=== PATIENT | female | born 1950 | race Caucasian/White ===

== ENCOUNTER 2016-07-30 11:51 | Day surgery (SDC) | payer MEDICARE, OTHER ==
[2016-07-26 15:05] VITALS: BMI 34.0
[~2016-07-30 11:51] MED LIST: LACTATED RINGERS 1,000 ML IV SCH; Pre Op ABX Message 1 EACH MISC MISCELLANE ONE
[2016-07-30 12:12] VITALS: RESP 16; TEMP 98.2
[2016-07-30] MEDS ORDERED: LIDOCAINE 1% 20 ML VIAL (10MG/ML) FOR IV START INTRADERMA ONE (12:28)
[2016-07-30] MEDS ORDERED: DEXAMETHASONE SOD PHOS (MDV) 100 MG/10 ML VIAL IV ONE (12:32)
[2016-07-30] MEDS ORDERED: ONDANSETRON 4 MG/2 ML VIAL IVP ONE (12:32)
[2016-07-30 12:45] LABS: Glucose,Whole Blood 107 mg/dL (75-99)
[2016-07-30] MEDS ORDERED: MIDAZOLAM 2 MG/2 ML VIAL ONE (14:00)
[2016-07-30] MEDS ORDERED: PROPOFOL 10 MG/ML 20 ML VIAL IV ONE (14:00)
[2016-07-30] MEDS ORDERED: fentaNYL (PF) 50 MCG/ML 2 ML AMP ONE (14:00)
[2016-07-30] MEDS ORDERED: BUPIVACAINE (PF) 0.5% 30 ML VIAL SQ ONE (14:12)
[2016-07-30] MEDS ORDERED: LIDOCAINE 2% INJ 20 MG/ML SQ ONE (14:12)
[2016-07-30 14:58] VITALS: BP 129/82; PULSE 75
[2016-07-30 15:07] LABS: Glucose,Whole Blood 128 mg/dL (75-99)
--- NOTE | 2016-08-15 09:37 | OP ---
DATE OF SERVICE: 07/30/2016 SURGEON: MARILYN HERRING DO PIPELINES LABORER: PREOPERATIVE DIAGNOSIS: Right carpal tunnel syndrome. POSTOPERATIVE DIAGNOSIS: Right carpal tunnel syndrome. OPERATION: Right carpal tunnel release. ANESTHESIA: ESTIMATED BLOOD LOSS: SPECIMENS REMOVED: COMPLICATIONS: OPERATIVE FINDINGS: DESCRIPTION OF PROCEDURE: The patient was taken to the operative suite where a sedation was administered by the Department of Anesthesia. I then performed a local injection along the line of the incision with a combination of Marcaine and Xylocaine both without epinephrine. The hand was then prepped and draped in the usual manner. The arm was elevated, exsanguinated and the cuff was inflated to 250 mmHg. A longitudinal incision was made along the ring finger ray distal to the wrist crease. Dissection was taken through the skin and subcutaneous tissue, initially sharp through the skin and then blunt through the subcutaneous tissue to ensure protection of any potential terminal transverse branches of the palmar cutaneous nerve. The palmar fascia was then incised under direct vision longitudinally exposing the transverse carpal ligament. The transverse carpal ligament also was incised under direct vision. The dissection was then continued proximally beneath the skin under direct vision to release the distal forearm fascia. The median nerve was then reflected free of tenosynovium to ensure no adhesions. The tourniquet was then released. The wound was then irrigated and the skin was closed with a running 5-0 nylon suture. A soft bulky dressing was applied including a volar plaster splint holding the wrist in a neutral slightly extended position. The patient was then taken to the recovery room in satisfactory condition.
== END 2016-07-30 15:16 | disposition home or self-care (01) ==
LOC: OR 11:51
PROVIDERS: ATTEND Orthopaedic Surgery Hand Surgery
DX: G56.01 Carpal tunnel syndrome, right upper limb (principal); M19.031 Primary osteoarthritis, right wrist; I10 Essential (primary) hypertension; Z87.891 Personal history of nicotine dependence; E11.9 Type 2 diabetes mellitus without complications; Z79.4 Long term (current) use of insulin; Z79.84 Long term (current) use of oral hypoglycemic drugs; G62.9 Polyneuropathy, unspecified; E78.5 Hyperlipidemia, unspecified; K21.9 Gastro-esophageal reflux disease without esophagitis; Z79.82 Long term (current) use of aspirin; Z79.899 Other long term (current) drug therapy
CPT/HCPCS: 64721; J2001; J2250; J2405; J3010; J1100; J2704

== ENCOUNTER → 2017-01-08 | Outpatient (CLI) | payer MEDICARE, OTHER ==
--- NOTE | 2017-01-08 14:17 | US ---
EXAMINATION TYPE: US kidneys/renal and bladder DATE OF EXAM: 01/08/2017 COMPARISON: NONE CLINICAL HISTORY: Abnormal Kidney Functions R94.4. Abnormal kidney function, diabetes EXAM MEASUREMENTS: Right Kidney: 13.1 x 4.5 x 6.3 cm Left Kidney: 11.8 x 5.5 x 4.9 cm Right Kidney: enlarged with a hypoechoic area mid = 0.8 x 0.7 x 1.0cm Left Kidney: Hypoechoic area lower = 1.0 x 0.8 x 1.1cm Bladder: appears wnl Bilateral Jets seen: yes No hydronephrosis or nephrolithiasis. Bladder distends normally. IMPRESSION: Small hypoechoic areas involving both kidneys are too small to characterize
== END | disposition home or self-care (01) ==
LOC: RADUSWWP 12:22
PROVIDERS: ATTEND Family Medicine
DX: R93.421 Abnormal radiologic findings on diagnostic imaging of right kidney (principal); R93.422 Abnormal radiologic findings on diagnostic imaging of left kidney; R94.4 Abnormal results of kidney function studies
CPT/HCPCS: 76770

== ENCOUNTER → 2018-03-13 | Outpatient (CLI) | payer MEDICARE, OTHER ==
--- NOTE | 2018-03-13 18:45 | US ---
EXAMINATION TYPE: US kidneys/renal and bladder DATE OF EXAM: 03/13/2018 COMPARISON: 01/08/2017 CLINICAL HISTORY: 67-year-old female KIDNEY LESION N28.9. H/O renal lesions TECHNIQUE: Multiple sonographic images of the kidneys and bladder are obtained. FINDINGS: EXAM MEASUREMENTS: Right Kidney: 11.9 x 5.7 x 5.5 cm Left Kidney: 11.9 x 6.2 x 5.0 cm No hydronephrosis on either side. Right Kidney: Cystic lesion as seen on previous laterally= 0.8 x 0.8 x 0.7 cm (10 x 8 x 7 mm, previo usly) Left Kidney: HypoHypoechoic lesion lower pole= 1.0 x 0.9 x 1.2 cmersus 10 x 8 x 11 mm, previously) Bladder: wnl wnlilateral Jets seen: Yes PRESSION: 1. A benign 8 mm cyst in the right kidney is slightly smaller from prior. 2. A 12 mm hypoechoic lesion in the left lower pole is relatively stable for over a year and suggests a cyst. Internal echoes could be artifactual or could represent debris. 3. No hydronephrosis.
== END ==
LOC: RADUSWWP 12:50
PROVIDERS: ATTEND Family Medicine
DX: N28.9 Disorder of kidney and ureter, unspecified (principal); N28.1 Cyst of kidney, acquired
CPT/HCPCS: 76770

== ENCOUNTER → 2019-01-19 | Outpatient (CLI) | payer MEDICARE, OTHER ==
--- NOTE | 2019-01-19 13:08 | XR ---
EXAMINATION TYPE: XR Hip Complete LT DATE OF EXAM: 01/19/2019 COMPARISON: NONE HISTORY: Pain TECHNIQUE: 2 views submitted FINDINGS: There is no evidence of erosive change or acute fracture. Hypertrophic change of the acetabulum. Mild concentric narrowing the joint space. No erosive changes. IMPRESSION: 1. Arthropathy correlate for femoral acetabular impingement.
--- NOTE | 2019-01-19 13:12 | XR ---
EXAM TYPE: LUMBAR SPINE X RAY SERIES COMPARISON: NONE HISTORY: Pain TECHNIQUE: 4 views are submitted. FINDINGS: Alignment is anatomic. The pedicles are intact. The transverse processes are intact. There is reanna re degenerative disc disease with vacuum disc L5-S1. Severe facet arthropathy L3-S1. Grade 1 anteroli sthesis L4 on L5. Degenerative disc disease thoracolumbar spine. Vascular calcifications noted. Could not exclude a infrarenal abdominal aortic aneurysm measuring 3 IMPRESSION: 1. Multilevel severe facet arthropathy with degenerative disc disease most marked at L5-S1. There is a rate 1 anterolisthesis L4 on L5. 2. Correlate with the ultrasound to assess for borderline 3 cm abdominal aortic aneurysm
== END ==
LOC: RADXRMAIN 12:40
PROVIDERS: ATTEND Family Medicine
DX: M51.37 Other intervertebral disc degeneration, lumbosacral region (principal); M43.16 Spondylolisthesis, lumbar region; M46.97 Unspecified inflammatory spondylopathy, lumbosacral region; M12.9 Arthropathy, unspecified
CPT/HCPCS: 72110; 73502

== ENCOUNTER → 2019-02-13 | Outpatient (CLI) | payer MEDICARE, OTHER ==
--- NOTE | 2019-02-14 09:34 | US ---
EXAMINATION TYPE: US duplex aorta DATE OF EXAM: 02/13/2019 COMPARISON: CLINICAL HISTORY: Z13.6; R93.7. Possible AAA, nonsmoker, HTN, xray showed possible AAA EXAM MEASUREMENTS: Abdominal Aorta: Proximal: 2.4 x 2.7 cm Mid: 2.0 x 2.0 cm Distal: 1.7 x 2.1 cm Bifurcation: Right- 0.8 x 0.9 cm Left- 0.8 x 1.0 cm No AAA visualized IMPRESSION: No evidence for abdominal aortic aneurysm.
== END | disposition home or self-care (01) ==
LOC: RADUSWWP 15:27
PROVIDERS: ATTEND Family Medicine
DX: Z13.6 Encounter for screening for cardiovascular disorders (principal); R93.7 Abnormal findings on diagnostic imaging of other parts of musculoskeletal system
CPT/HCPCS: 93979

== ENCOUNTER → 2019-06-03 | Outpatient (CLI) | payer MEDICARE, OTHER ==
--- NOTE | 2019-06-03 10:00 | US ---
EXAMINATION TYPE: US abdomen complete DATE OF EXAM: 06/03/2019 COMPARISON: Previous Aorta and Renal US CLINICAL HISTORY: N28.1 cyst of kidney D25.9 Leiomyoma of uterus, u. F/U renal cysts EXAM MEASUREMENTS: Liver Length: 16.5 cm Gallbladder Wall: 0.2 cm CBD: 0.5 cm Spleen: 6.2 cm Right Kidney: 12.0 x 4.7 x 5.0 cm Left Kidney: 11.0 x 6.2 x 5.2 cm Pancreas: 3mm duct visualized, tail obscured by overlying bowel gas Liver: Difficult to penetrate, heterogeneous, possible fatty sparing near GB, possible cyst anterior right lobe= 1.1 cm Gallbladder: Distended Evidence for sonographic Carlos's sign: No CBD: wnl Spleen: Calcifications scattered within spleen Right Kidney: Cyst lateral= 1.1 x 1.0 x 0.6 cm, unchanged from previous Left Kidney: Cyst lower pole= 1.2 x 1.1 x 1.0 cm, unchanged from previous, possible 5mm calcificatio n mid Upper IVC: wnl Abd Aorta: Ectatic with upper limit measurement at distal aspect= 2.8 x 2.6 cm IMPRESSION: 1. Fatty liver. 2. Gallbladder distention. 3. Renal cystic changes.
--- NOTE | 2019-06-03 10:09 | US ---
EXAMINATION TYPE: US pelvic complete DATE OF EXAM: 06/03/2019 COMPARISON: NONE CLINICAL HISTORY: N28.1 cyst of kidney D25.9 Leiomyoma of uterus, u. Pt states known fibroids within uterus, F/U, no previous study here TECHNIQUE: Transabdominal (TA). Transabdominal sonographic images of the pelvis were acquired. Date of LMP: Pt states age [age] EXAM MEASUREMENTS: Uterus: 9.2 x 3.2 x 4.4 cm Endometrial Stripe: 0.4 cm Right Ovary: 3.8 x 3.4 x 3.3 cm Left Ovary: 1.8 x 1.7 x 1.2 cm 1. Uterus: Anteverted Heterogeneous with two possible fibroids 1)= lower uterine segment= 1.4 x 1. 2 x 1.6 cm, 2)= posterior fundus== 2.1 x 2.2 x 2.1 cm 2. Endometrium: Appeared wnl 3. Right Ovary: Enlarged, possible solid lesion= 2.5 x 2.0 x 2.4 cm/ Far out in right adnexa 4. Left Ovary: Appeared wnl 5. Bilateral Adnexa: wnl 6. Posterior cul-de-sac: wnl IMPRESSION: 1 solid appearing mass of right ovary. CT is recommended further evaluation. 2. Leiomyomatous change.
== END | disposition home or self-care (01) ==
LOC: RADUSWWP 08:10
PROVIDERS: ATTEND Family Medicine
DX: D25.9 Leiomyoma of uterus, unspecified (principal); K76.0 Fatty (change of) liver, not elsewhere classified; K82.8 Other specified diseases of gallbladder; N28.1 Cyst of kidney, acquired
CPT/HCPCS: 76700; 76856

== ENCOUNTER 2020-01-29 08:17 | Emergency (ER) | payer MEDICARE ==
[2020-01-29 08:21] VITALS: BP 157/94; PULSE 103; RESP 18; TEMP 99.1
[2020-01-29] MEDS ORDERED: AMOXIC-POT CLAV 875-125MG 1 EACH TAB PO STA (08:34)
[2020-01-29] MEDS ORDERED: AMOXIC-POT CLAV 875MG STARTER PACK 2 TAB BTL PO STA (08:34)
--- NOTE | 2020-01-29 08:45 | ED ---
General Adult HPI - General Chief complaint: Dental/Oral Stated complaint: Abscess/Dental Pain Time Seen by Provider: 01/29/20 08:20 Source: patient, RN notes reviewed, old records reviewed Mode of arrival: ambulatory Limitations: no limitations - History of Present Illness Initial comments: This is a 69-year-old female presents emergency Department complaining of abscessed tooth at tooth #17 on the left lower jaw. Patient states she started amoxicillin on Saturday afternoon which she states is not getting any better. Patient states she does not want to have the abscess drained because she's too afraid. Patient's wondering if there is a better antibiotic. Patient denies any fever chills. Patient states the swelling is getting a little bit worse. - Related Data Home Medications Medication Instructions Recorded Confirmed Ascorbic Acid [Vitamin C] 500 mg PO DAILY PRN 02/14/16 07/26/16 Cinnamon Bark [Cinnamon] 1,000 mg PO DAILY PRN 02/14/16 07/26/16 Insulin Glargine [Lantus] 34 unit SQ DAILY 02/14/16 07/26/16 Losartan [Cozaar] 50 mg PO DAILY 02/14/16 07/26/16 Magnesium 250 mg PO DAILY PRN 02/14/16 07/26/16 Omeprazole 20 mg PO DAILY 02/14/16 07/26/16 Potassium Chloride [Klor-Con 10] 10 meq PO DAILY 02/14/16 07/26/16 Pravastatin Sodium [Pravachol] 20 mg PO QAM 02/14/16 07/26/16 Pregabalin [Lyrica] 150 mg PO BID 02/14/16 07/26/16 Vitamin E 400 unit PO DAILY 02/14/16 07/26/16 amLODIPine [Norvasc] 10 mg PO DAILY 02/14/16 07/26/16 atenoloL [Atenolol] 100 mg PO DAILY 02/14/16 07/26/16 glipiZIDE [Glucotrol] 10 mg PO DAILY 02/14/16 07/26/16 hydroCHLOROthiazide [Hydrodiuril] 50 mg PO DAILY 02/14/16 07/26/16 metFORMIN HCL [Glucophage] 850 mg PO BID 02/14/16 07/26/16 Aspirin [Adult Low Dose Aspirin EC] 81 mg PO DAILY 07/26/16 07/26/16 Cholecalciferol [Vitamin D3] 2,000 unit PO DAILY 07/26/16 07/26/16 Liraglutide [Victoza 2-Arsalan] 1.8 mg INJ DAILY 07/26/16 07/26/16 Pioglitazone [Actos] 30 mg PO DAILY 07/26/16 07/26/16 Previous Rx's Medication Instructions Recorded Amoxicillin/Potassium Clav 1 each PO Q12HR #28 tab 01/29/20 [Augmentin 875-125 Tablet] Ibuprofen [Motrin] 600 mg PO Q6HR PRN #20 tab 01/29/20 Allergies Allergy/AdvReac Type Severity Reaction Status Date / Time No Known Allergies Allergy Verified 01/29/20 08:19 Review of Systems ROS Statement: Those systems with pertinent positive or pertinent negative responses have been documented in the HPI. ROS Other: All systems not noted in ROS Statement are negative. Past Medical History Past Medical History: Diabetes Mellitus, GERD/Reflux, Hyperlipidemia, Hypertension Additional Past Medical History / Comment(s): Carpal Tunnel to R hand, neuropathy. History of Any Multi-Drug Resistant Organisms: None Reported Past Surgical History: Section, Orthopedic Surgery Additional Past Surgical History / Comment(s): Hx surgery to left ankle with screws, hemorrhoidectomy, D&C, colonoscopy. Past Anesthesia/Blood Transfusion Reactions: Previous Problems w/ Anesthesia Additional Past Anesthesia/Blood Transfusion Reaction / Comment(s): had hard time waking up after one surgery Past Psychological History: No Psychological Hx Reported Smoking Status: Never smoker Past Alcohol Use History: Rare Past Drug Use History: None Reported - Past Family History Mother History Unknown: Yes Family Medical History: No Reported History General Exam - General Exam Comments Initial Comments: GENERAL Patient is well-developed and well-nourished. Patient is in mild distress. EYES Patient's pupils are equal and round. Extraocular motion is intact MOUTH Patient has a little fluctuance next to the 17th tooth. SKIN Unremarkable NEURO The patient is alert and oriented 3 PYSCH Patient has normal interpersonal interactions. MUSCULOSKELETAL All 4 extremities and full range of motion Limitations: no limitations Course Vital Signs 01/29/20 08:19 Temperature 99.1 F Pulse Rate 103 H Respiratory 18 Rate Blood Pressure 157/94 O2 Sat by Pulse 99 Oximetry Medical Decision Making - Medical Decision Making I spoke with the patient about draining the abscess she actually refused. I tried to convince her 3 times and she refused so at this point time are going to change antibiotics from amoxicillin to Augmentin. Disposition Clinical Impression: Dental abscess Disposition: HOME SELF-CARE Condition: Good Instructions (If sedation given, give patient instructions): Dental Abscess (ED) Prescriptions: Amoxicillin/Potassium Clav [Augmentin 875-125 Tablet] 1 each PO Q12HR #28 tab Ibuprofen [Motrin] 600 mg PO Q6HR PRN #20 tab PRN Reason: For pain Is patient prescribed a controlled substance at d/c from ED?: No Referrals: Helen Hickman MD [Primary Care Provider] - 1-2 days Time of Disposition: 08:45
== END 2020-01-29 08:50 | disposition home or self-care (01) ==
LOC: EC 08:17
DX: K04.7 Periapical abscess without sinus (principal); E11.40 Type 2 diabetes mellitus with diabetic neuropathy, unspecified; K21.9 Gastro-esophageal reflux disease without esophagitis; E78.5 Hyperlipidemia, unspecified; I10 Essential (primary) hypertension; Z79.4 Long term (current) use of insulin; Z79.899 Other long term (current) drug therapy
CPT/HCPCS: 99283

== ENCOUNTER → 2020-05-23 | Outpatient (CLI) | payer MEDICARE ==
--- NOTE | 2020-05-23 11:41 | BD ---
EXAMINATION TYPE: Axial Bone Density DATE OF EXAM: 05/23/2020 COMPARISON: NONE CLINICAL HISTORY: 69-year-old female postmenopausal screening Height: 5 FT 1 3/4 IN Weight: 173 FRAX RISK QUESTIONS: Alcohol (3 or more units per day): NO Family History (Parent hip fracture): NO Glucocorticoids (More than 3mos): NO (Ex: prednisone, prednisolone, methylprednisolone, dexamethasone, and hydrocortisone). History of Fracture in Adulthood: YES Secondary Osteoporosis: 1. Type 1 Diabetes: NO 2. Hyperthyroidism: NO 3. Menopause before 45: NO 4. Malnutrition: NO 5. Chronic liver disease: NO Rheumatoid Arthritis: NO Current Tobacco Use: NO RISK FACTORS HISTORY OF: Family History of Osteoporosis: NO Active: YES Diet low in dairy products/other sources of calcium: NO Postmenopausal woman: AGE 52 Take estrogen and/or progesterone medications: NONE Lost more than 2 inches in height since high school: NO MEDICATIONS: Additional Medications: Additional History: CHOLESTEROL MEDS, BLOOD PRESSURE MEDS , ATENOLOL, H2O PILL, VICTOZA, LOSARTIN, EXAM MEASUREMENTS: Bone mineral densitometry was performed using the [employer]. Bone mineral density as measured about the Lumbar spine is: ----- L1-L4(G/cm2): 1.328 T Score Values are as follows: ----- L2: -0.4 ----- L3: 1.7 ----- L4: 2.7 ----- L1-L4: 1.2 BASELINE Bone mineral density about the R hip (g/cm2): 0.802 Bone mineral density about the L hip (g/cm2): 0.806 T Score values are as follows: -----R Neck: -1.7 -----L Neck: -1.7 -----R Total: -1.2 -----L Total: -1.4 BASELINE IMPRESSION: Osteopenia (T Score between -2.5 and -1). There is slightly increased risk of fracture and the patient may be considered for treatment. Re-Screen 2-5 years. NOTE: T-SCORE=SD OF THE YOUNG ADULT MEAN.
== END | disposition home or self-care (01) ==
LOC: RADBDWWP 09:58
PROVIDERS: ATTEND Family Medicine
DX: M85.80 Other specified disorders of bone density and structure, unspecified site (principal)
CPT/HCPCS: 77080